=== PATIENT | female | born 1970 | race Caucasian/White ===

== ENCOUNTER 2023-12-08 10:32 | Outpatient (CLI) | payer BC, SELFPAY ==
--- NOTE | ~2023-12-08 | MMUS_ITS ---
EXAMINATION: MM diagnostic mariela BI w nancy, US breast RT limited HISTORY: Lump in the right breast TECHNIQUE: Additional 3-D tomosynthesis images of the breasts were performed and synthetic 2-D images were generated. CAD analysis was submitted and interpreted. High resolution Limited right breast ult rasound was performed. COMPARISON: No prior studies for comparison. BREAST PARENCHYMAL COMPOSITION: Not dense: There are scattered areas of fibroglandular density. FINDINGS: MAMMOGRAPHIC FINDINGS: There are no suspicious masses, calcifications or architectural distortion in either breast to sugges t malignancy. ULTRASOUND: Complete US of all 4 quadrants of the breast/s and retroareolar region was reviewed. Right breast: At 3:00, 2 cm from the nipple there is a 3 mm cyst. At 9:00, 3 cm from the nipple there is a 4 mm cyst. No suspicious masses to suggest malignancy. IMPRESSION: 1. No evidence for malignancy in either breast. Benign findings. 2. Routine yearly screening mammogram and regular clinical breast examination are recommended. BI-RADS Category 2: Benign finding(s). Reviewed, dictated and finalized at location B. IMPRESSION: 1. No evidence for malignancy in either breast. Benign findings. 2. Routine yearly screening mammogram and regular clinical breast examination a re recommended. BI-RADS Category 2: Benign finding(s).
== END 2023-12-08 10:33 | disposition home or self-care (01) ==
PROVIDERS: Visit Provider Surgery
DX: N63.10 Unspecified lump in the right breast, unspecified quadrant (principal); R92.8 Other abnormal and inconclusive findings on diagnostic imaging of breast
CPT/HCPCS: 76642; 77062; 77066; G0279